=== PATIENT | male | born 1930 | race Caucasian/White ===

== ENCOUNTER 2017-02-27 20:59 | Inpatient (IN) | payer OTHER, BC ==
[~2017-02-27] VITALS: Ht 177.8 cm; Wt 70.6 kg
--- NOTE | ~2017-02-27 | EEG ---
[facility] [place] [address] [place] [address] ELECTROENCEPHALOGRAM Name: EMMA GALLO Room #: 437-P ADM IN M.R.#: [id number] Admission: 03/01/17 Attend Phys: Nikolai Canada DO Discharge: Date of : 34 Report #: [id number] THIS REPORT FOR: //name// CC: Kamlesh Canada DATE OF SERVICE: 02/28/2017 This patient is being evaluated for altered mental status. Background activity in this patient's EEG is about 7-8 Hz and 30 microvolt. This is a poorly formed background activity. It is intermixed with theta range slowing. Photic stimulation was unremarkable. The patient went to sleep and that is associated with bilaterally symmetrical sleep spindle and vertex sharp waves. Throughout the record, no active epileptiform activity was noticed. IMPRESSION: This is an abnormal EEG because it is disorganized and poorly formed. That is a nonspecific abnormality, which can occur with encephalopathy, effect of psychotropic medication, dementia, etc. Clinical correlation is recommended. Thank you very much for this referral. <ELECTRONICALLY SIGNED> By: Rishi Segura MD 03/05/17907 [id number] 45 Rishi Segura MD /nt
--- NOTE | ~2017-02-27 | HC ---
[facility] [place] [address] [place] [address] CONSULTATION Name: EMMA GALLO JOHNSON Room #: 437-P DIS IN M.R.#: [id number] Admission: 03/01/17 Attend Phys: Nikolai Canada DO Discharge: 03/05/17 Date of : 34 Report #: [id number] THIS REPORT FOR: //name// CC: Kamlesh Canada DATE OF SERVICE: 03/05/2017 HISTORY OF PRESENT ILLNESS: The patient is an 87-year-old white male with a prior history of dementia, hypertension, and hyperlipidemia admitted with acute mental status changes. He was noted to be more lethargic. His Ativan had apparently been changed from p.r.n. to scheduled. He was seen by Neurology and noted to have progressive dementia. He was later diagnosed with likely Parkinson's and started on Requip with stopping carbidopa and levodopa. Psychiatry has been involved and thought that his presentation was likely due to the scheduled Ativan. Seroquel is on order at bedtime. We are seeing him in Rehabilitation Medicine consultation. PAST MEDICAL HISTORY: Includes dementia, atrial fibrillation, lumbar fusion, elevated cholesterol, and hypertension. MEDICATIONS: Please see the full medication listing. SOCIAL HISTORY: He has been living in an assisted living facility. He has been ambulatory without gait aids with the staff assisting him to get back and forth to the dining room. is moving to [facility] and they are desiring for him to go there. REVIEW OF SYSTEMS: Basically unobtainable with his mental status. PHYSICAL EXAMINATION: GENERAL: An 87-year-old white male with a slender build, no obvious distress. He does have a soft voice. HEENT: Facies appeared symmetric. He may have some slight masking of his facies. EXTREMITIES: Upper extremities does reveal some cogwheeling of the wrist and elbows. NEUROLOGIC: Upper extremity strength is probably a grade 3+ to 4-/5. Lower extremities, no focal calf swelling. Functional range of motion with strength grade 3+ to 4-/5. He is contact guard with sit to stand. He ambulates 350 feet min assist without an assistive device. He does have some decreased balance. MENTAL STATUS EXAMINATION: He was pleasant, could not verbalize very well for me. He showed me the Cheerios in his right hand and appeared to want to do something with them. When I brought up a trash can, he was able to throw the Cheerios into the trash can. Some of his speech is nonsensical. He was unable [address] [address] CONSULTATION Name: EMMA GALLO [place] Room #: 437-P [facility] IN M.R.#: [id number] Admission: 03/01/17 Attend Phys: Nikolai Canada DO Discharge: 03/05/17 Date of : 34 Report #: [id number] to answer any of the basic questions I asked him. He appears to have a soft voice. ASSESSMENT: An 87-year-old white male with the following problem list: 1. Parkinson is noted to be a new diagnosis. Neurology has been involved. 2. Dementia noted to be worsening. 3. Gait instability. 4. History of a lumbar fusion. 5. Hypertension. PLAN: Therapies are working with the patient. Discussion with the who is anticipating the patient going to [facility]. She indicated consideration for the memory care unit. At this point, we will continue to follow along with you for now, but the above noted plan would appear reasonable. By: 0950 [id number] Kamlesh Santacruz MD /[facility]
--- NOTE | ~2017-02-27 | EKG ---
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
[~2017-02-27 20:59] MED LIST: ARICEPT 5 MG TAB5 MG PO; ASPIRIN EC81 M1 PO; ASPIRIN325 PO; BUSPIRONE HCL15 MG PO; CARDIZEM CD180 MG PO; CENTURY TABLET1 EACH PO; FISH OIL 1,001000 M1 PO; L-LYSINE500 M1 PO; LIPITOR 20 MG T20 M1 PO; MAG-OX 400 TAB400 M1 PO; MAGOX 400400 MG PO; PROZAC20 MG PO; VITAMIN D31000 UNI2 PO; ZIOPTAN 0.00151 EACH OP; [UNRECOGNIZED DRUG - CODE] PO
[2017-02-27 21:00] VITALS: BP 107/65
[2017-02-27] MEDS ORDERED: NAMZARIC 28 MG1 EACH PO (21:17)
[2017-02-27] MEDS ORDERED: UNICOMPLEX M TA1 TA1 PO (21:17)
[2017-02-27] MEDS ORDERED: VITAMIN D2000 UNIT PO (21:18)
[2017-02-27] MEDS ORDERED: ZIOPTAN 0.00151 EACH OPHTHALMIC (21:19)
[2017-02-27] MEDS ORDERED: SEROQUEL 25 MG25 M1 PO (21:19)
[2017-02-27] MEDS ORDERED: ATIVAN0.5 MG PO ×3 (21:20→21:21)
[2017-02-27] MEDS ORDERED: FLOMAX0.4 MG PO (21:22)
[2017-02-27 21:45] LABS: ABSOLUTE NEUTROPHILS 3.8 thou/uL (1.4-8.2); BASOPHILS 0.9 % (0.0-2.0); EOSINOPHILS 1.2 % (0.0-3.0); HEMATOCRIT 39.9 % (42.0-52.0); HEMOGLOBIN 13.7 gm/dL (14.0-18.0); LYMPHOCYTES 30.6 % (24.0-44.0); MCHC 34.4 g/dL (28.0-37.0); MCV 93.2 fL (80.0-100.0); MONOCYTES 8.7 % (1.0-8.0); PLATELET COUNT 217 thou/uL (150-400); POLYS 58.6 % (36.0-66.0); RBC 4.28 mil/uL (4.50-6.00); RDW 13.7 % (10.5-14.5); WBC 6.5 thou/uL (4.0-11.0)
[2017-02-27 21:46] LABS: MANUAL DIFF NO
[2017-02-27 21:56] LABS: URINE BILIRUBIN NEGATIVE (Negative); URINE BLOOD NEGATIVE (Negative); URINE COLOR YELLOW; URINE GLUCOSE-RANDOM* NEGATIVE (Negative); URINE KETONES 1+ (Negative); URINE NITRITE NEGATIVE (Negative); URINE PROTEIN (DIPSTICK) NEGATIVE (Negative); URINE SPECIFIC GRAVITY >= 1.030 (1.003-1.035); URINE UROBILINOGEN 0.2 E.U./dl (0.2-1.0)
[2017-02-27 21:59] LABS: ANION GAP 6 mmol/L (7-16); BUN 23 mg/dL (7-18); CALCIUM 9.4 mg/dL (8.5-10.1); CHLORIDE 107 mmol/L (98-107); CO2 28 mmol/L (21-32); CREATININE 1.2 mg/dL (0.7-1.3); GLUCOSE 106 mg/dL (74-106); POTASSIUM 4.2 mmol/L (3.5-5.1); SODIUM 141 mmol/L (136-145)
[2017-02-27 22:04] LABS: ALBUMIN 4.1 g/dL (3.4-5.0); ALKALINE PHOSPHATASE 83 U/L (46-116); MAGNESIUM 2.4 mg/dL (1.8-2.4); SGOT 21 U/L (15-37); SGPT 21 U/L (30-65); TOTAL BILIRUBIN 0.7 mg/dL (<0.1-1.0); TROPONIN-I < 0.04 ng/mL (<0.04-0.07)
[2017-02-27 22:05] LABS: AMP/METHAMP Negative (Negative); BARBITURATES Negative (Negative); BENZODIAZEPINES Negative (Negative); COCAINE Negative (Negative); METHADONE Negative (Negative); OPIATES Negative (Negative); PCP Negative (Negative); THC Negative (Negative)
[2017-02-27 22:54] VITALS: BP 130/58
[2017-02-27 23:21] VITALS: BP 105/58
[2017-02-27 23:45] VITALS: BP 135/56
[2017-02-28 04:34] VITALS: BP 141/61
[2017-02-28 04:44] VITALS: BP 148/48
[2017-02-28 05:59] LABS: HEMATOCRIT 37.3 % (42.0-52.0); HEMOGLOBIN 12.5 gm/dL (14.0-18.0); MCH 31.5 pg (26.0-34.0); MCHC 33.5 g/dL (28.0-37.0); MCV 94.2 fL (80.0-100.0); RBC 3.96 mil/uL (4.50-6.00); RDW 13.4 % (10.5-14.5); WBC 6.9 thou/uL (4.0-11.0)
[2017-02-28 06:10] LABS: CALCIUM 8.7 mg/dL (8.5-10.1); POTASSIUM 3.6 mmol/L (3.5-5.1)
[2017-02-28 06:58] LABS: TSH 1.418 uIU/mL (0.358-3.740)
[2017-02-28 08:00] VITALS: BP 159/60
[2017-02-28] MEDS ORDERED: BAYER CHEWABLE81 MG PO (09:37)
[2017-02-28 16:00] VITALS: BP 148/69
[2017-03-01 03:49] VITALS: BP 135/56
[2017-03-01 08:00] VITALS: BP 159/70
[2017-03-01 16:00] VITALS: BP 160/71
[2017-03-01 19:42] VITALS: BP 153/60
[2017-03-02 04:04] VITALS: BP 146/46
[2017-03-02 07:15] VITALS: BP 146/66
[2017-03-02 15:41] VITALS: BP 116/46
[2017-03-02 19:24] VITALS: BP 130/50
[2017-03-03 05:36] VITALS: BP 140/49
[2017-03-03 05:52] LABS: ABSOLUTE NEUTROPHILS 4.2 thou/uL (1.4-8.2); BASOPHILS 0.8 % (0.0-2.0); EOSINOPHILS 1.8 % (0.0-3.0); HEMATOCRIT 38.7 % (42.0-52.0); HEMOGLOBIN 13.3 gm/dL (14.0-18.0); LYMPHOCYTES 31.5 % (24.0-44.0); MCHC 34.3 g/dL (28.0-37.0); MCV 93.2 fL (80.0-100.0); MONOCYTES 9.3 % (1.0-8.0); PLATELET COUNT 206 thou/uL (150-400); POLYS 56.6 % (36.0-66.0); RBC 4.15 mil/uL (4.50-6.00); RDW 13.5 % (10.5-14.5); WBC 7.5 thou/uL (4.0-11.0)
[2017-03-03 05:53] LABS: MANUAL DIFF NO
[2017-03-03 05:57] LABS: CALCIUM 8.7 mg/dL (8.5-10.1); CREATININE 0.8 mg/dL (0.7-1.3); POTASSIUM 3.5 mmol/L (3.5-5.1)
[2017-03-03 08:00] VITALS: BP 141/67
[2017-03-03 16:00] VITALS: BP 142/73
[2017-03-03 19:19] VITALS: BP 139/58
[2017-03-04 04:36] VITALS: BP 138/53
[2017-03-04 08:00] VITALS: BP 146/69
[2017-03-04 15:52] VITALS: BP 128/60
[2017-03-04 19:46] VITALS: BP 137/62
[2017-03-05 00:27] VITALS: BP 133/53
[2017-03-05 03:24] VITALS: BP 123/55
[2017-03-05 08:00] VITALS: BP 150/49
[2017-03-05] MEDS ORDERED: SEROQUEL 50 MG50 M1 PO (08:41)
[2017-03-05] MEDS ORDERED: SEROQUEL 25 MG25 M1 PO (08:41)
[2017-03-05] MEDS ORDERED: REQUIP 0.25 M0.25 MG PO (08:42)
[2017-03-05 12:15] VITALS: BP 118/72
[2017-03-05 13:00] VITALS: BP 118/72
== END 2017-03-05 14:50 | DRG 56 ==
LOC: ER 20:59 → 4S 22:47 → EROBS 22:47 → 4S 23:21 → ENTRNSPT 03-05 14:32 → EDTRNSPTSTS 03-05 14:37 → 4S 03-05 14:50
PROVIDERS: Emergency Medicine; Family Medicine; Nurse Practitioner Family
DX: G20 Parkinson's disease (principal); G93.41 Metabolic encephalopathy; N17.1 Acute kidney failure with acute cortical necrosis; F02.81 Dementia in other diseases classified elsewhere, unspecified severity, with behavioral disturbance; F50.00 Anorexia nervosa, unspecified; F05 Delirium due to known physiological condition; G30.9 Alzheimer's disease, unspecified; E78.00 Pure hypercholesterolemia, unspecified; M62.81 Muscle weakness (generalized); R26.9 Unspecified abnormalities of gait and mobility; I10 Essential (primary) hypertension; I48.91 Unspecified atrial fibrillation; Z98.1 Arthrodesis status; Z87.891 Personal history of nicotine dependence; Z91.81 History of falling; Z88.8 Allergy status to other drugs, medicaments and biological substances

== ENCOUNTER 2017-06-02 13:30 | Emergency (ER) | payer OTHER, BC ==
[~2017-06-02] VITALS: Ht 180.3 cm; Wt 74.4 kg
--- NOTE | ~2017-06-02 | EKG ---
[address] [address] [id number] [place] [address] ELECTROCARDIOGRAM REPORT Name: EMMA GALLO [id number] Admission: 06/02/17 Attend Phys: Discharge: Date of : 34 Report #: [id number] THIS REPORT FOR: //name// [facility] ED Test Date: 2017-06-02 Test Time: 13:58:45 Pat Name: EMMA GALLO Department: Room: Gender: [employer] Operator: [facility] : 1930 Requested By: Nigel Zaldivar Order Number: [id number] MD: Jason Rodriguez Measurements Intervals [place] Rate: 48 P: 72 [place]: 174 QRS: 27 QRSD: 96 T: 66 QT: 464 QTc: 415 Interpretive Statements Sinus bradycardia Otherwise no significant abnormality Compared to ECG 02/27/2017 21:27:42 no significant change was found Electronically Signed On 06-02-2017 14:37:21 [employer] by Jason Rodriguez [email or web address] <ELECTRONICALLY SIGNED> By: Jason Rodriguez MD, [facility] 06/02/17 1437 [id number] [id number] Jason Rodriguez MD, FACC /EPI
[~2017-06-02 13:30] MED LIST changes: +ATIVAN0.5 MG PO; +BAYER CHEWABLE81 MG PO; +FLOMAX0.4 MG PO; +NAMZARIC 28 MG1 EACH PO; +REQUIP 0.25 M0.25 MG PO; +SEROQUEL 25 MG25 M1 PO; +SEROQUEL 50 MG50 M1 PO; +UNICOMPLEX M TA1 TA1 PO; +VITAMIN D2000 UNIT PO; +ZIOPTAN 0.00151 EACH OPHTHALMIC
[2017-06-02] MEDS ORDERED: ZIOPTAN 0.00151 EACH OPHTHALMIC (14:23)
[2017-06-02] MEDS ORDERED: XANAX 0.5 MG0.5 MG PO (14:23)
[2017-06-02 14:24] LABS: ABSOLUTE NEUTROPHILS 3.9 thou/uL (1.4-8.2); BASOPHILS 0.8 % (0.0-2.0); EOSINOPHILS 1.8 % (0.0-3.0); HEMATOCRIT 41.8 % (42.0-52.0); HEMOGLOBIN 14.1 gm/dL (14.0-18.0); LYMPHOCYTES 24.2 % (24.0-44.0); MCH 31.4 pg (26.0-34.0); MCHC 33.8 g/dL (28.0-37.0); MONOCYTES 7.2 % (1.0-8.0); PLATELET COUNT 209 thou/uL (150-400); RDW 13.7 % (10.5-14.5); WBC 5.9 thou/uL (4.0-11.0)
[2017-06-02 14:31] LABS: CREATININE 1.3 mg/dL (0.7-1.3); POTASSIUM 4.3 mmol/L (3.5-5.1)
[2017-06-02 14:38] LABS: PROTIME 10.7 Seconds (9.3-11.4)
[2017-06-02 14:40] LABS: URINE BILIRUBIN NEGATIVE (Negative); URINE BLOOD NEGATIVE (Negative); URINE CLARITY CLEAR; URINE COLOR YELLOW; URINE GLUCOSE-RANDOM* NEGATIVE (Negative); URINE KETONES TRACE (Negative); URINE LEUKOCYTES NEGATIVE (Negative); URINE NITRITE NEGATIVE (Negative); URINE PROTEIN (DIPSTICK) NEGATIVE (Negative); URINE SPECIFIC GRAVITY >= 1.030 (1.005-1.035); URINE UROBILINOGEN 0.2 E.U./dl (0.2-1.0)
[2017-06-02 14:42] LABS: ALBUMIN 3.6 g/dL (3.4-5.0); TOTAL BILIRUBIN 0.7 mg/dL (<0.1-1.0); TOTAL PROTEIN 6.1 g/dL (6.4-8.2)
[2017-06-02 14:50] LABS: AMP/METHAMP Negative (Negative); BARBITURATES Negative (Negative); BENZODIAZEPINES POSITIVE (Negative); COCAINE Negative (Negative); METHADONE Negative (Negative); OPIATES Negative (Negative); PCP Negative (Negative)
[2017-06-02 14:57] LABS: SALICYLATE < 2.8 mg/dL (2.8-20.0)
[2017-06-02 15:48] VITALS: BP 113/82
[2017-10-19] MEDS ORDERED: CIPROFLOXACIN500 M1 PO (17:03)
[2017-10-19] MEDS ORDERED: FLAGYL500 MG PO (17:03)
== END 2017-06-02 15:49 | disposition home or self-care (01) ==
LOC: ER 13:30
PROVIDERS: Physician Assistant
DX: R41.82 Altered mental status, unspecified (principal); G30.9 Alzheimer's disease, unspecified; R53.83 Other fatigue; E78.00 Pure hypercholesterolemia, unspecified; I10 Essential (primary) hypertension; K56.7 Ileus, unspecified; I48.91 Unspecified atrial fibrillation; F03.90 Unspecified dementia, unspecified severity, without behavioral disturbance, psychotic disturbance, mood disturbance, and anxiety; Z88.8 Allergy status to other drugs, medicaments and biological substances